=== PATIENT | male | born 2000 | race African-American/Black ===

== ENCOUNTER 2021-12-20 01:14 | Inpatient (IN) ==
[2021-12-20 02:12] LABS: ABS Basophils 0.1 10^3/ul (0-0.2); ABS Monocytes 1.2 10^3/ul (0-0.8); Eosinophil % 0.1 %; Hematocrit 45 % (42-52); Hemoglobin 15.4 g/dL (14.0-18.0); Mean Corpuscular HGB Conc 34 g/dL (31-36); Mean Corpuscular Hemoglobin 29 pg (27-31); Mean Corpuscular Volume 85 fL (80-94); Mean Platelet Volume 8.7 fL (7.4-10.4); Nucleated Red Blood Cells % 0.1; Platelet Count 191 10^3/uL (150-450); Red Blood Count 5.32 10^6 /uL (4.18-5.48); Red Cell Distribution Width 14 % (10-15); White Blood Count 8.2 10^3/uL (3.5-10.8)
[2021-12-20 02:23] LABS: Urine Appearance Cloudy; Urine Bilirubin Negative (Negative); Urine Blood Negative (Negative); Urine Color Yellow; Urine Glucose Negative (Negative); Urine Ketones Trace (Negative); Urine Nitrite Negative (Negative); Urine Protein 2+(100 mg/dL) (Negative); Urine Specific Gravity 1.021 (1.002-1.030); Urine Urobilinogen Negative (Negative)
[2021-12-20 02:29] LABS: Urine Benzodiazepine Screen None Detected (None Detect); Urine Cannabinoids Screen Presumptive Positive (None Detect); Urine Opiates Screen None Detected (None Detect)
[2021-12-20 02:37] LABS: Urine Bacteria Absent (Absent); Urine Red Blood Cell Trace(0-2/hpf) (Absent); Urine Squamous Epithelial Cell Present (Absent); Urine White Blood Cell Trace(0-5/hpf) (Absent)
[2021-12-20 03:16] LABS: ALT 22 U/L (7-52); AST 24 U/L (13-39); Acetaminophen < 15 mcg/mL; Albumin 4.6 g/dL (3.2-5.2); Albumin/Globulin Ratio 1.6 (1-3); Alcohol, S < 13 mg/dL (<13); Alkaline Phosphatase 62 U/L (35-149); Anion Gap 12 mmol/L (2-11); Blood Urea Nitrogen 8 mg/dL (6-24); CO2 Carbon Dioxide 25 mmol/L (22-32); Calcium 9.5 mg/dL (8.6-10.3); Chloride 100 mmol/L (101-111); Globulin 2.9 g/dL (2-4); Glucose 137 mg/dL (70-100); Potassium 3.5 mmol/L (3.5-5.0); Salicylate < 2.50 mg/dL (<30); Sodium 137 mmol/L (135-145); Total Protein 7.5 g/dL (6.4-8.9); eGFR CKD-EPI 126.3 (>60)
[2021-12-20 03:30] LABS: TSH Ultra Thyroid Stim Horm 2.48 mcIU/mL (0.34-5.60)
[2021-12-20] MEDS ORDERED: Al Hydrox/Mg Hydrox/Simet LIQ 30 ML UDC PO PRN (08:17)
[2021-12-20] MEDS: Vitamin THERAPEUTIC TAB PO SCH (08:50)
[2021-12-20] MEDS: Nicotine GUM 2MG FRUIT FLAVOR PO PRN (18:39)
[2021-12-21 07:55] VITALS: BP 148/81
[2021-12-21] MEDS: Nicotine GUM 2MG FRUIT FLAVOR PO PRN ×2 (08:17→12:54)
[2021-12-21 08:47] LABS: HDL Cholesterol 76.2 mg/dL
[2021-12-21] MEDS: Vitamin THERAPEUTIC TAB PO SCH (09:19)
== END 2021-12-21 15:50 | disposition home or self-care (01) | DRG 754 ==
LOC: ED 01:14 → BSU 06:49
PROVIDERS: ADMIT Psychiatry & Neurology Psychiatry; ATTEND Psychiatry & Neurology Psychiatry